=== PATIENT | female | born 1960 | race Caucasian/White ===

== ENCOUNTER 2020-12-14 16:39 | Emergency (ER) | payer OTHER ==
[2020-12-14 16:56] VITALS: BP 165/66; PULSE 78; TEMP 97.2; BMI 33.1
== END 2020-12-14 18:30 | disposition home or self-care (01) ==
LOC: JER 16:39 → JERFT 16:39
DX: M79.641 Pain in right hand (principal)
CPT/HCPCS: 73130-TC-RT-FY; 99282-25